=== PATIENT | female | born 1965 | race Caucasian/White ===

== ENCOUNTER 2020-05-11 10:19 | Day surgery (SDC) | payer BC ==
[~2020-05-11] VITALS: Ht 167.6 cm; Wt 142.9 kg
[2020-05-11 10:44] LABS: BASOPHILS 0.1 % (0-2); HEMATOCRIT 28.5 % (36.0-48.0); HEMOGLOBIN 8.9 g/dL (12-16); IMMATURE GRANULOCYTES 0.8 % (0-5); LYMPHOCYTE ABS# 0.95 10x3/uL (1.18-3.74); LYMPHOCYTES 11.9 % (15-50); MCH 28.1 pg (26.0-34.0); MCHC 31.2 g/dL (31.0-37.0); MCV 89.9 fL (80.0-100.0); MEAN PLATELET VOLUME 8.6 fL (7.4-10.4); MONOCYTES 8.5 % (2-11); NEUTROPHILS 76.7 % (40-80); PLATELET COUNT 191 10x3/uL (130-400); RBC 3.17 10x6/uL (4.00-5.40); RDW 14.6 % (11.5-14.5)
[2020-05-11 10:50] LABS: INR 1.25 (0.85-1.17); PROTIME 14.5 SECONDS (11.6-15.0)
[2020-05-11 11:15] LABS: ANION GAP 14.3 mmol/L (8-16); CARBON DIOXIDE 25.3 mmol/L (21.0-32.0); CREATININE - SERUM 3.8 mg/dL (0.6-1.3); POTASSIUM - SERUM 4.6 mmol/L (3.5-5.1)
[2020-05-11 12:43] VITALS: Ht 167.6 cm; Wt 142.9 kg
[2020-05-11] MEDS ORDERED: LEVOTHYROXINE175 MCG PO (12:52)
[2020-05-11] MEDS ORDERED: BASAGLAR K100 UNIT/1 SC ×2 (12:52→12:53)
[2020-05-11] MEDS ORDERED: HYDRALAZINE HC100 MG PO (12:52)
[2020-05-11] MEDS ORDERED: CARDURA2 MG PO (12:54)
[2020-05-11] MEDS ORDERED: CRESTOR5 MG PO (12:55)
[2020-05-11] MEDS ORDERED: ELIQUIS5 MG PO (12:56)
[2020-05-11] MEDS ORDERED: CYMBALTA30 MG PO (12:56)
[2020-05-11] MEDS ORDERED: COREG12.5 MG PO (12:56)
[2020-05-11] MEDS ORDERED: CLONIDINE HCL0.3 MG PO (12:59)
[2020-05-11] MEDS ORDERED: CARDIZEM60 MG PO (13:00)
[2020-05-11] MEDS ORDERED: BUMEX2 MG PO (13:00)
[2020-05-11] MEDS ORDERED: TUMS X-STR300 MG PO (13:02)
[2020-05-11] MEDS ORDERED: SODIUM BICARBO650 MG PO (13:02)
[2020-05-11] MEDS ORDERED: FERROUS SULFAT325 MG PO (13:02)
[2020-05-11] MEDS ORDERED: ULTRAM50 MG PO (15:55)
--- NOTE | 2020-05-11 17:25 | NUR ---
DR ANAYA CALLED TO NOTIFY THAT PT DIDNT GET A BLOCK TO SEE IF SHE NEEDED A SLING STILL. ORDERS GIVEN TO HAVE PT WEAR SLING FOR JUST OVER NIGHT. PT ASLEEP AND HAS UNDIAGNOSED SLEEP APNEA. ON 02 2 LITERS GETTING RX FILLED
--- NOTE | 2020-05-11 18:32 | NUR ---
1809 WAS UNABLE TO FILL RX AT PHARM. WILL ALEISHA IN [facility] AT HOME. 1814 IV REMOVED AND ASSISTED WITH GETTING DRESSED AND VOIDED. BECAME NAUSEATED BUT NO VOMITING. ICE RAG APPLIED ON NECK AND NAUSEA PASSED. PT GIVEN SOME APPLE JUICE. INSTRUCTIONS GIVEN EARLIER
--- NOTE | 2020-05-15 11:01 | OP ---
PATIENT NAME: PEPE FLEMING MEDICAL RECORD: [id number] LOCATION:[facility] ADMISSION DATE: SURGEON: DAMION ANAYA MD DATE OF OPERATION: 05/11/2020 REFERRED BY: Dr. Rausch PREOPERATIVE DIAGNOSIS: Chronic kidney disease V. POSTOPERATIVE DIAGNOSIS: Chronic kidney disease V. OPERATION PERFORMED: Implantation of a PTFE loop graft in the left forearm from the brachial artery to the median cephalic vein implanting a 4-7 mm diameter tapered [place] [employer] Intering graft. SURGEON: Damion Anaya MD ANESTHESIA: Regional nerve block and MAC per [facility]. PREOPERATIVE NOTE: This very nice lady has worsening renal failure and is expected to require dialysis soon. She is brought to the operating room at this time to implant a prosthetic graft in her forearm. She has been shown to have quite small vessels on her vein mapping studies. Under nerve block and additional IV sedation and monitoring per [facility], the patient's left arm was prepped and draped in a sterile manner. I used [place] drain as a proximal venous tourniquet and applied nitroglycerin ointment to the intact skin of the arm and forearm and antecubital fossa. Ultrasound demonstrated a single suitable vein in the antecubital fossa, a median cephalic vein which I thought could be used to receive a PTFE graft. The brachial artery was small and bifurcated at that level I anticipated performing the anastomosis. The [place] drain was removed and the nitroglycerin wiped away. The transverse incision made just beneath the antecubital space and distal brachial artery and its bifurcation and the proximal radial and proximal ulnar arteries were dissected and controlled with Silastic loops. The median cephalic vein was exposed and it was dissected from surrounding structures. It tended to spasm easily and it was treated repeatedly with topical papaverine. I chose the above PTFE [place] Intering graft and bevelled and basically prepared the tapered end for anastomosis. The artery was occluded and then a 5-6 mm arteriotomy was made and the arteries flushed with heparinized saline. The graft was then sutured to the side of the artery with running 6-0 Prolene. The arteries and graft were flushed with heparinized saline and clamped. The suture line was hemostatic and there developed an excellent pulse in the new graft. I made a counter incision distally on the forearm and then placed the new graft in a subcutaneous looping tunnel coming back to the antecubital space, taking care that there were no twists or kinks. The graft was shortened and beveled. The vein was occluded with vascular clamps proximally and distally and a venotomy made approximately 1 cm or to 12 mm in length. The graft was then anastomosed end-to-side, end of graft to side of vein with a running 6-0 Prolene after the vein of course was flushed with heparinized saline. When the second anastomosis was completed and the occluding loops and clamps had been removed, excellent flow developed in the new graft with a strong palpable thrill and pulsation. There was excellent continuous pulsatile Doppler flow in the recipient cephalic vein above the anastomosis and there was maintenance of pulsatile high resistance of somewhat dampened flow in the radial artery at the wrist. There was low resistance, OPERATIVE REPORT [id number] PEPE FLEMING strong amplitude pulsatile flow in the ulnar artery at the wrist which to me indicates likely reversal of flow there. The hand remained pink and warm throughout the procedure. The wounds were irrigated with saline and then closed with interrupted inverted 3-0 Vicryl and running intracuticular 4-0 Stratafix and Dermabond glue. They were dressed with Maxorb Ag, Tegaderm, and Cavilon skin prep. The patient was then awakened and returned to the recovery room in stable condition with a functioning forearm loop graft. PLAN: The patient should be able to go home today. She may wear a sling today and this evening, but should take it off tomorrow. She can continue her same medications, so I will ask her not to resume her Eliquis for 48 hours. I am concerned of the possibility of her developing a hematoma in the operative field. She will continue her same diet. She will return to see me in my office next week if possible. If she cannot come next week, then certainly the following week. She is to keep her dressings dry and clean and intact until she returns to see me. I anticipate that her new AV graft could potentially be used for dialysis access in 2 weeks' time. TRANSINT:[id number] Voice Confirmation ID: [id number] DOCUMENT ID: [id number] DAMION ANAYA MD at 1101 CC: MATTHEW RAUSCH MD [id number] DICTATION DATE: 05/11/20 1610 DIRECTOR MOBILE: 05/12/20 0124 [facility] 05/11/20 [facility] [address] [place] [address]
== END 2020-05-11 18:25 | disposition home or self-care (01) ==
LOC: D.OPS 10:19
PROVIDERS: ATTEND Surgery
DX: N18.5 Chronic kidney disease, stage 5 (principal); I10 Essential (primary) hypertension